=== PATIENT | female | born 1985 | race Caucasian/White ===

== ENCOUNTER 2024-05-14 13:44 | Emergency (ER) | payer MEDICAID, OTHER ==
[2024-05-14] MEDS: Bupivacaine 0.5% 10 ML SDV INJECT ONE (14:38)
[2024-05-14] MEDS: Bacitracin Oint 1 GM U/D Packet TOP ONE (14:52)
[2024-05-14] MEDS: Amoxicillin/Clavulanate K 875-125 MG Tab PO ONE (14:58)
== END 2024-05-14 15:15 | disposition home or self-care (01) ==
LOC: LL.ED 13:44
DX: L03.012 Cellulitis of left finger (principal); L02.512 Cutaneous abscess of left hand; J45.909 Unspecified asthma, uncomplicated; Z86.16 Personal history of COVID-19; Z91.018 Allergy to other foods
CPT/HCPCS: 26010; 73140-F1; 87070; 87205; 99283-25; A9270-GY; J0665